=== PATIENT | male | born 1980 | race Caucasian/White ===

== ENCOUNTER → 2017-04-11 | Outpatient (CLI) | payer BC | LOC: HEART 5 09:15 | DX: R07.9 Chest pain, unspecified (principal) | CPT/HCPCS: 78452; A9502 ==

== ENCOUNTER → 2017-05-01 | Outpatient (CLI) | payer BC | LOC: SLEEP 21:30 | DX: G47.33 Obstructive sleep apnea (adult) (pediatric) (principal) | CPT/HCPCS: 95810 ==

== ENCOUNTER 2021-08-20 15:01 | Emergency (ER) | payer OTHER ==
[~2021-08-20] VITALS: Ht 182.9 cm; Wt 158.8 kg
[2021-08-20 16:25] LABS: HEMOGLOBIN 16.1 gm/dl (14.0-17.5); RED BLOOD COUNT 5.49 M/UL (4.20-5.50)
[2021-08-20 16:46] LABS: BUN/CREATININE RATIO 19 (0-10)
== END 2021-08-20 17:53 | disposition home or self-care (01) ==
LOC: ER1 15:01
PROVIDERS: Physician Assistant
DX: Z23 Encounter for immunization (principal); U07.1 COVID-19; F17.210 Nicotine dependence, cigarettes, uncomplicated
CPT/HCPCS: 71045; 80053; 82550; 82553; 83874; 84484; 85025; 93005; 99285; M0243

== ENCOUNTER 2021-10-08 21:13 | Emergency (ER) | payer OTHER ==
[2021-10-08 22:05] LABS: HEMOGLOBIN 16.9 gm/dl (14.0-17.5); RED BLOOD COUNT 5.61 M/UL (4.20-5.50); WHITE BLOOD COUNT 13.5 K/UL (4.5-11.0)
[2021-10-08 22:57] LABS: BUN/CREATININE RATIO 15 (0-10)
== END 2021-10-09 02:30 | disposition home or self-care (01) ==
LOC: ER1 21:13
PROVIDERS: Emergency Medicine
DX: R07.89 Other chest pain (principal); Z20.822 Contact with and (suspected) exposure to COVID-19; R00.2 Palpitations; R42 Dizziness and giddiness
CPT/HCPCS: 71045; 80053; 82550; 82553; 83874; 84484; 85025; 93005; 99285; U0002

== ENCOUNTER → 2021-11-09 | Outpatient (CLI) | payer OTHER | LOC: HEART 5 10:39 | DX: R07.9 Chest pain, unspecified (principal); R53.83 Other fatigue; R06.02 Shortness of breath | CPT/HCPCS: 93306 ==

== ENCOUNTER 2022-02-25 11:00 | Emergency (ER) | payer OTHER ==
[2022-02-25 11:54] LABS: HEMOGLOBIN 17.2 gm/dl (14.0-17.5); RED BLOOD COUNT 5.8 M/UL (4.20-5.50); WHITE BLOOD COUNT 7.9 K/UL (4.5-11.0)
[2022-02-25 12:26] LABS: BUN/CREATININE RATIO 16 (0-10)
[2022-02-25] MEDS ORDERED: IBUPROFEN800 MG PO (14:01)
== END 2022-02-25 14:12 | disposition home or self-care (01) ==
LOC: ER1 11:00
PROVIDERS: Physician Assistant
DX: J03.90 Acute tonsillitis, unspecified (principal); R07.89 Other chest pain; J39.2 Other diseases of pharynx; Z20.822 Contact with and (suspected) exposure to COVID-19; K21.9 Gastro-esophageal reflux disease without esophagitis
CPT/HCPCS: 0240U; 70491; 71045; 80053; 82550; 82553; 83690; 84484; 85025; 86403; 87081; 87880; 93005; 96372; 99284; J1100; Q9967